=== PATIENT | male | born 1965 | race African-American/Black ===

== ENCOUNTER 2018-10-02 13:15 | Emergency (ER) | payer OTHER, BC ==
[2018-10-02 13:24] VITALS: TEMP 98.3; BMI 33.7
--- NOTE | 2018-10-02 14:32 | PDOC ---
History of Present Illness - General Chief Complaint: Pain, Acute Stated Complaint: RT SIDE ABD PAIN Time Seen by Provider: 10/02/18 14:05 - History of Present Illness Initial Comments: Mr. Gaona is a 53 y/o male with PMH of HTN (off his meds) presenting with flank and abdominal pain. Reports that the flank pain started 1 week ago. Yesterday, reports that the pain has migrated to his RLQ. Pain does not radiate anywhere else. Reports that the pain is intermittent. Denies fever, chills, nausea, vomiting. Denies chest pain or shortness of breath. Denies changes in stool or urinary symptoms. PMH: HTN SurgHx: bl patellar knee tendon repair Meds: prescribed HTN meds but non-adherent FamHx: DM in both parents Past History - Past Medical History Allergies/Adverse Reactions: Allergies Allergy/AdvReac Type Severity Reaction Status Date / Time No Known Allergies Allergy Verified 10/02/18 13:24 Home Medications: Ambulatory Orders Verapamil HCl [Verapamil ER] 240 mg PO DAILY 10/02/18 metFORMIN HCL [Metformin HCl] 500 mg PO DAILY 10/02/18 COPD: No HTN: Yes - Immunization History Immunization Up to Date: Yes - Suicide/Smoking/Psychosocial Hx Smoking History: Never smoked Hx Alcohol Use: No Drug/Substance Use Hx: Yes ([facility]) Review of Systems - Review of Systems Comments:: ROS GENERAL/CONSTITUTIONAL: No fever or chills. No weakness._ HEAD, EYES, EARS, NOSE AND THROAT: No change in vision. No ear pain or discharge. No sore throat._ CARDIOVASCULAR: No chest pain or shortness of breath_ RESPIRATORY: Denies cough, hemoptysis_ GASTROINTESTINAL: No nausea, vomiting, diarrhea or constipation. Report RLQ abdominal pain. GENITOURINARY: No dysuria, frequency, or change in urination._ MUSCULOSKELETAL: No joint or muscle swelling or pain. No neck pain. Reports right back pain. SKIN: No rash_ NEUROLOGIC: No headache, vertigo, loss of consciousness, or change in strength/ sensation._ ENDOCRINE: No increased thirst. No abnormal weight change_ HEMATOLOGIC/LYMPHATIC: No anemia, easy bleeding, or history of blood clots._ ALLERGIC/IMMUNOLOGIC: No hives or skin allergy._ *Physical Exam - Vital Signs Last Vital Signs Temp Pulse Resp BP Pulse Ox 98.3 F 85 18 237/114 H 100 10/02/18 13:21 10/02/18 13:21 10/02/18 13:21 10/02/18 13:21 10/02/18 13:21 - Physical Exam Comments: GENERAL: Awake, alert, and oriented to person/place/time, in no acute distress_ HEAD: No signs of trauma, normocephalic, atraumatic _ EYES: PERRLA, EOMI, sclera anicteric, conjunctiva clear_ ENT: Hearing grossly normal, nares patent, oropharynx clear without exudates. No uvular deviation. Moist mucosa_ NECK: Normal ROM, supple, no lymphadenopathy, JVD, or masses_ LUNGS: No distress, speaks in full sentences, clear to auscultation bilaterally _ HEART: Regular rate and rhythm, normal S1 and S2, no murmurs appreciated, peripheral pulses normal and equal bilaterally._ ABDOMEN: Soft, TTP RLQ, normoactive bowel sounds. No guarding, no rebound. No masses. Negative Rovsing's. BACK: No CVA tenderness bilaterally. EXTREMITIES: Normal inspection, Normal range of motion, no edema. No clubbing or cyanosis_ NEUROLOGICAL: Cranial nerves II through XII grossly intact. Normal speech, normal gait, no focal sensorimotor deficits _ SKIN: Warm, Dry, normal turgor, no rashes or lesions noted_ ED Treatment Course - LABORATORY CBC & Chemistry Diagram: 10/02/18 14:54 10/02/18 14:54 Medical Decision Making - Medical Decision Making 10/02/18 1430 53M with PMH of HTN, non-adherent to medications, presenting with right flank pain for the past week and RLQ pain that started yesterday. Obtain CBC, CMP, CXR, EKG, trop, UA, lipase, Mg, coags. 10/02/18 15:00 EKG shows NSR 75 bpm, possible left atrial enlargement, no ST elevation/ depression, QTc 437 ms. 10/02/18 21:10 Patient BP moderately decreased at rest and with home dose of verapamil during ER course. Labs and UA reviewed and wnl. CT of the abd/pelv shows no acute intra-abdominal process. Plan to d/c home with Tylenol for muscle strain pain control and instructions to follow up with PCP for blood pressure control. Patient has verapamil at home to take as prescribed. Strict return precautions given. *DC/Admit/Observation/Transfer Diagnosis at time of Disposition: Essential hypertension, Muscle strain - Discharge Dispostion Disposition: HOME Condition at time of disposition: Stable Decision to Admit order: No - Referrals Referrals: Fern Gu MD [Primary Care Provider] - - Patient Instructions Additional Instructions: Please continue taking your verapamil (blood pressure medication) as prescribed. Please make an appointment with your primary care doctor to follow up on blood pressure control. Please take Tylenol as needed for muscle strain until you can see your primary care doctor (follow instructions on the package). If you experience any new, worsening, or concerning symptoms, including headache , blurry vision, chest pain, shortness of breath, blood in the urine, or any other concerns, please return to the emergency room. - Post Discharge Activity
[2018-10-02] MEDS ORDERED: ACETAMINOPHEN 1000 MG/100 ML VIAL (NON FORMULARY) IVPB ONE (15:07)
[2018-10-02 15:17] LABS: EOS % 2.9 % (0-4.5); HEMATOCRIT 48.1 % (35.4-49); HEMOGLOBIN 16.4 GM/dL (11.7-16.9); LYMPH % 25.8 % (8-40); MCHC 34.2 g/dl (32.0-35.9); MEAN CELL VOLUME 87.8 fl (80-96); MEAN PLT VOLUME 9.7 fl (7.5-11.1); MONO % 8.9 % (3.8-10.2); NEUT % 61.4 % (42.8-82.8); PLATELET COUNT 244 K/MM3 (134-434); RBC 5.47 M/mm3 (4.00-5.60); RDW 12.6 % (11.9-15.9); WHITE BLOOD COUNT 5.9 K/mm3 (4.0-10.0)
[2018-10-02 15:24] LABS: INR 0.97 (0.83-1.09); PROTHROMBIN TIME (PATIENT) 11.4 SEC (9.7-13.0)
[2018-10-02] MEDS ORDERED: ACETAMINOPHEN INJECTION 100 ML IVPB ONE (15:26)
[2018-10-02 15:58] LABS: BILIRUBIN,TOTAL 1.2 mg/dL (0.2-1); BLOOD UREA NITROGEN 13.3 mg/dL (7-18); CALCIUM 9.2 mg/dL (8.5-10.1); CREATININE 1.3 mg/dL (0.55-1.3); MAGNESIUM 2.1 mg/dL (1.8-2.4); POTASSIUM 4.9 mmol/L (3.5-5.1); TOT PROT 7.2 g/dl (6.4-8.2)
--- NOTE | 2018-10-02 15:59 | PDOC ---
Documentation entered by Bar Malloy SCRIBE, acting as scribe for Alfonzo Farah MD. Alfonzo Farah MD: This documentation has been prepared by the Gama carranza Xhesika, SCRIBE, under my direction and personally reviewed by me in its entirety. I confirm that the documentation accurately reflects all work, treatment, procedures, and medical decision making performed by me. Attending Attestation - Resident Resident Name: Fausto Mcdonald - ED Attending Attestation I have performed the following: I have examined & evaluated the patient, The case was reviewed & discussed with the resident, I agree w/resident's findings & plan - HPI HPI: 10/02/18 15:36 The patient is a 53 year old male with a significant PMH of HTN (noncompliant with medication the past week) who presents to the emergency department with 1 week of R sided flank pain that has now moved to the R mid/lower abd. Pt was in the gym the day prior to onset, it was initially positional in nature so he attributed it to muscular pain. Pain is constant, and now relocalized to the R mid/lower abd so he presents for eval. Patient denies history of kidney stones, dysuria, frequency, urgency and hematuria. No cardiopulmonary complaints, no GI complaints. The patient denies chest pain, shortness of breath, headache and dizziness. Denies fever, chills, cough, nausea, vomiting, diarrhea and constipation. Allergies: NKDA Past surgical history: b/l patellar knee tendon repair PCP: Riccardo Santos Abdul - Physicial Exam PE: 10/02/18 15:57 A pressure markedly elevated at triage, improved without medications Well-appearing gentleman lying comfortably in stretcher, no acute distress, smiling and conversant Heart is regular, lungs are clear Abdomen is soft/nondistended. There is discomfort to palpation with some guarding along the right lateral abdomen in the mid quadrant, no CVA tenderness , no palpable hernias, exam is normal. No palpable abdominal also, masses. Normal peripheral pulses No rash - Medical Decision Making 10/02/18 15:58 53-year-old male with labile blood pressures secondary to noncompliance with antihypertensives presents now with 1 week of constant right flank pain that has migrated to the right mid/right lower abdomen, not associated with any cardiopulmonary/GI/ complaints. Exam localizes to the right middle abdomen, question consistent with renal colic, bedside ultrasound shows no evidence of aneurysm, but will need imaging to rule out vascular process versus renal infarct given his elevated blood pressures. Labs, urinalysis Pain control CT of the abdomen and pelvis with and without IV contrast Reassess Heart Score/ECG Review #1 ECG reviewed & interpreted by me at: 14:44 General ECG Interpretation: Sinus Rhythm, Normal Rate (75), Normal Intervals ( qtc 437), No acute ischemic changes (TWI I/AVL, V5V6.) Compared to previous ECG there are: Previous ECG unavail
--- NOTE | 2018-10-02 16:01 | EKG ---
Test Reason : Blood Pressure : / mmHG Vent. Rate : 075 BPM Atrial Rate : 075 BPM P-R Int : 182 ms QRS Dur : 106 ms QT Int : 392 ms P-R-T Axes : 048 030 139 degrees QTc Int : 437 ms NORMAL SINUS RHYTHM POSSIBLE LEFT ATRIAL ENLARGEMENT POSSIBLE INFERIOR INFARCT , AGE UNDETERMINED T WAVE ABNORMALITY, CONSIDER LATERAL ISCHEMIA ABNORMAL ECG NO PREVIOUS ECGS AVAILABLE Confirmed by MD LEEANN, KIARA ([id number]) on 10/02/2018 4:00:38 PM Referred By: Confirmed By:KIARA BRADSHAW MD
[2018-10-02 19:34] VITALS: PULSE 77
[2018-10-02] MEDS ORDERED: VERAPAMIL HCL 240 MG E.R. TABLET PO ONE (19:58)
[2018-10-02 20:14] LABS: EPI CELLS 0.2 /HPF (0-5/HPF); HYALINE CASTS 0 /lpf (0-8); URINE APPEARANCE CLEAR; URINE BACTERIA 0.8 /hpf (NEGATIVE); URINE BILIRUBIN NEGATIVE (NEGATIVE); URINE COLOR YELLOW; URINE GLUCOSE (UA) NEGATIVE (NEGATIVE); URINE KETONE NEGATIVE (NEGATIVE); URINE LEUK ESTERASE NEGATIVE (NEGATIVE); URINE NITRITE NEGATIVE (NEGATIVE); URINE PROTEIN 1+ (NEGATIVE); URINE RBC 0 /hpf (0-4); URINE UROBILINOGEN 0.2 mg/dL (0.2-1.0); URINE WBC 1 /hpf (0-5)
[2018-10-03 02:46] VITALS: BP 170/105
== END 2018-10-02 21:29 | disposition home or self-care (01) ==
LOC: JER 13:15
PROC: 3E033NZ Introduction of Analgesics, Hypnotics, Sedatives into Peripheral Vein, Percutaneous Approach (ICD-10-PCS; principal; 2018-10-02)
DX: S39.011A Strain of muscle, fascia and tendon of abdomen, initial encounter (principal); X58.XXXA Exposure to other specified factors, initial encounter; Y93.89 Activity, other specified; Y92.89 Other specified places as the place of occurrence of the external cause; Y99.8 Other external cause status; I10 Essential (primary) hypertension; Z91.14 Patient's other noncompliance with medication regimen
CPT/HCPCS: 36415; 71045-TC-FY; 74178-TC; 80053; 81003; 82150; 82550; 82553; 83690; 83735; 84484; 85025; 85610; 86850; 86900; 86901; 93005; 93010; 99283-25; J0131

== ENCOUNTER 2021-05-28 11:40 | Inpatient (IN) | payer BC, OTHER ==
[2021-05-28 13:20] LABS: BASO % 1.3 % (0-2.0); EOS % 2.1 % (0-4.5); HEMATOCRIT 47.3 % (35.4-49); HEMOGLOBIN 15.7 GM/dL (11.7-16.9); MCH 29.9 pg (25.7-33.7); MCHC 33.2 g/dl (32.0-35.9); MEAN CELL VOLUME 90.2 fl (80-96); MEAN PLT VOLUME 9.8 fl (7.5-11.1); MONO % 7.3 % (3.8-10.2); NEUT % 74.3 % (42.8-82.8); PLATELET COUNT 247 10^3/uL (134-434); RBC 5.25 M/mm3 (4.00-5.60); WHITE BLOOD COUNT 5.2 K/mm3 (4.0-10.0)
[2021-05-28 13:34] LABS: CALCIUM 8.8 mg/dL (8.5-10.1)
[2021-05-28 13:35] LABS: ALBUMIN 3.8 g/dl (3.4-5.0); BLOOD UREA NITROGEN 15.1 mg/dL (7-18)
[2021-05-28 13:38] LABS: CREATININE 1.4 mg/dL (0.55-1.3)
[2021-05-28 13:39] LABS: TOT PROT 7.1 g/dl (6.4-8.2)
[2021-05-28 13:42] LABS: N-TERMINAL BNP 369.2 pg/ml (5-125)
[2021-05-28] MEDS ORDERED: VALSARTAN 160 MG TABLET PO SCH (18:45)
[2021-05-29] MEDS ORDERED: VALSARTAN 160 MG TABLET PO ONE ×2 (05:33→09:30)
[2021-05-29 07:15] LABS: CALCIUM 8.2 mg/dL (8.5-10.1)
[2021-05-29 07:16] LABS: BLOOD UREA NITROGEN 17.9 mg/dL (7-18)
[2021-05-29 07:19] LABS: CREATININE 1.5 mg/dL (0.55-1.3)
[2021-05-29] MEDS ORDERED: VALSARTAN 160 MG TABLET PO SCH (08:00)
[2021-05-29] MEDS: ENOXAPARIN NA (PORCINE) 40 MG/0.4 ML DISP.SYRIN SQ SCH (09:30)
[2021-05-29] MEDS ORDERED: CHLORTHALIDONE 25 MG TABLET PO SCH (10:00)
[2021-05-29] MEDS ORDERED: ONDANSETRON 4 MG/2 ML VIAL IVPUSH PRN (16:06)
[2021-05-29] MEDS ORDERED: amLODIPine BESYLATE 5 MG TABLET (FP) PO ONE (18:23)
[2021-05-29] MEDS: ACETAMINOPHEN 325 MG TABLET (FP) PO PRN (18:28)
[2021-05-29] MEDS ORDERED: LABETALOL HCL 5 MG/1 ML (100MG/20 ML VIAL) IVPUSH ONE (21:07)
[2021-05-30] MEDS: CHLORTHALIDONE 25 MG TABLET PO SCH (06:07)
[2021-05-30] MEDS: ENOXAPARIN NA (PORCINE) 40 MG/0.4 ML DISP.SYRIN SQ SCH (09:30)
[2021-05-30] MEDS: VALSARTAN 160 MG TABLET PO SCH (09:30)
[2021-05-30] MEDS ORDERED: amLODIPine BESYLATE 5 MG TABLET (FP) PO ONE (15:02)
[2021-05-30] MEDS: hydrALAZINE HCL 50 MG TABLET (FP) PO SCH ×2 (18:14→21:46)
[2021-05-30] MEDS: amLODIPine BESYLATE 5 MG TABLET (FP) PO SCH (21:46)
[2021-05-30] MEDS ORDERED: amLODIPine BESYLATE 5 MG TABLET (FP) PO SCH (22:00)
[2021-05-31] MEDS: CHLORTHALIDONE 25 MG TABLET PO SCH (06:32)
[2021-05-31] MEDS: hydrALAZINE HCL 50 MG TABLET (FP) PO SCH ×3 (06:32→22:07)
[2021-05-31 08:21] LABS: ALBUMIN 3.4 g/dl (3.4-5.0); BLOOD UREA NITROGEN 15.2 mg/dL (7-18); CALCIUM 8.7 mg/dL (8.5-10.1); MAGNESIUM 2.1 mg/dL (1.8-2.4)
[2021-05-31 08:23] LABS: BILIRUBIN,DIRECT 0.3 mg/dL (0.0-0.2)
[2021-05-31 08:24] LABS: CREATININE 1.4 mg/dL (0.55-1.3); PHOSPHOROUS 3.4 mg/dL (2.5-4.9)
[2021-05-31 08:25] LABS: BILIRUBIN,TOTAL 1.2 mg/dL (0.2-1); TOT PROT 6.5 g/dl (6.4-8.2)
[2021-05-31] MEDS: VALSARTAN 160 MG TABLET PO SCH (10:10)
[2021-05-31] MEDS: ENOXAPARIN NA (PORCINE) 40 MG/0.4 ML DISP.SYRIN SQ SCH (10:10)
[2021-05-31] MEDS ORDERED: CHLORTHALIDONE 25 MG TABLET PO SCH (11:58)
[2021-05-31] MEDS ORDERED: hydrALAZINE HCL 50 MG TABLET (FP) PO ONE (12:15)
[2021-05-31] MEDS ORDERED: CHLORTHALIDONE 25 MG TABLET PO ONE (13:00)
[2021-05-31 13:32] VITALS: BMI 34.0
[2021-05-31] MEDS ORDERED: ACETAMINOPHEN 325 MG TABLET (FP) PO ONE (16:21)
[2021-05-31] MEDS: amLODIPine BESYLATE 5 MG TABLET (FP) PO SCH (22:07)
[2021-05-31 23:53] LABS: URINE APPEARANCE CLEAR; URINE BILIRUBIN NEGATIVE (NEGATIVE); URINE COLOR YELLOW; URINE GLUCOSE (UA) NEGATIVE (NEGATIVE); URINE KETONE NEGATIVE (NEGATIVE); URINE LEUK ESTERASE NEGATIVE (NEGATIVE); URINE NITRITE NEGATIVE (NEGATIVE); URINE PROTEIN NEGATIVE (NEGATIVE)
[2021-06-01] MEDS: hydrALAZINE HCL 50 MG TABLET (FP) PO SCH (05:23)
[2021-06-01] MEDS: CHLORTHALIDONE 25 MG TABLET PO SCH ×2 (05:23→06:03)
[2021-06-01 07:09] LABS: HEMATOCRIT 49.8 % (35.4-49); HEMOGLOBIN 16.7 GM/dL (11.7-16.9); MCH 30.3 pg (25.7-33.7); MCHC 33.6 g/dl (32.0-35.9); MEAN CELL VOLUME 90.3 fl (80-96); MEAN PLT VOLUME 9.4 fl (7.5-11.1); PLATELET COUNT 269 10^3/uL (134-434); RBC 5.51 M/mm3 (4.00-5.60); RDW 13.4 % (11.9-15.9); WHITE BLOOD COUNT 4.8 K/mm3 (4.0-10.0)
[2021-06-01 07:33] LABS: ALBUMIN 3.6 g/dl (3.4-5.0); BLOOD UREA NITROGEN 18.4 mg/dL (7-18); CALCIUM 9.1 mg/dL (8.5-10.1)
[2021-06-01 07:36] LABS: CREATININE 1.5 mg/dL (0.55-1.3)
[2021-06-01 07:37] LABS: BILIRUBIN,TOTAL 1.3 mg/dL (0.2-1); TOT PROT 6.8 g/dl (6.4-8.2)
[2021-06-01 08:24] VITALS: BP 139/82; PULSE 71; TEMP 98.7
[2021-06-01] MEDS: VALSARTAN 160 MG TABLET PO SCH (10:08)
[2021-06-01] MEDS: ENOXAPARIN NA (PORCINE) 40 MG/0.4 ML DISP.SYRIN SQ SCH (10:08)
[2021-06-01] MEDS: ACETAMINOPHEN 325 MG TABLET (FP) PO PRN (10:17)
[2021-06-01] MEDS ORDERED: ASPIRIN COATED 81 MG TABLET.EC PO SCH (11:30)
[2021-06-01] MEDS ORDERED: hydrALAZINE HCL 50 MG TABLET (FP) PO SCH (22:00)
[2021-06-02] MEDS ORDERED: CHLORTHALIDONE 25 MG TABLET PO SCH (07:00)
== END 2021-06-01 18:29 | disposition home or self-care (01) | DRG 305 ==
LOC: JER 11:40 → OBSVTOIN 12:56 → UNDOADMOB 12:56 → INTOOBSV 12:56 → JERBED 12:56 → OBSVTOIN 16:06 → J4W 18:23
PROVIDERS: ADMIT Internal Medicine; ATTEND Internal Medicine
DX: I16.0 Hypertensive urgency (principal); E11.9 Type 2 diabetes mellitus without complications; N28.1 Cyst of kidney, acquired; N18.2 Chronic kidney disease, stage 2 (mild); R74.01 Elevation of levels of liver transaminase levels; I13.10 Hypertensive heart and chronic kidney disease without heart failure, with stage 1 through stage 4 chronic kidney disease, or unspecified chronic kidney disease; R07.89 Other chest pain
CPT/HCPCS: 36415; 71046-TC-FY; 76705-TC; 76775-TC; 80048; 80053; 80061; 80076; 81003; 82570; 83036; 83735; 83835; 83880; 84100; 84156; 84443; 84484; 85025; 85027; 87086; 93005; 93010; 93306-TC; 93975; 99285-25; C9803-CS; U0003; U0005

== ENCOUNTER 2023-06-13 12:10 | Emergency (ER) | payer BC ==
[2023-06-13 12:21] VITALS: PULSE 85; RESP 18; TEMP 98.7; BMI 33.7
[2023-06-13 13:39] LABS: BASO % 1.3 % (0-2.0); EOS % 2.1 % (0-4.5); HEMATOCRIT 47.4 % (35.4-49); HEMOGLOBIN 15.8 GM/dL (11.7-16.9); LYMPH % 23.9 % (8-40); MCH 30.3 pg (25.7-33.7); MCHC 33.4 g/dl (32.0-35.9); MEAN CELL VOLUME 90.8 fl (80-96); MEAN PLT VOLUME 9.2 fl (7.5-11.1); MONO % 8.8 % (3.8-10.2); NEUT % 63.9 % (42.8-82.8); PLATELET COUNT 258 10^3/uL (134-434); RBC 5.22 M/mm3 (4.00-5.60); RDW 12.3 % (11.9-15.9); WHITE BLOOD COUNT 6.4 K/mm3 (4.0-10.0)
[2023-06-13 13:46] LABS: PROTHROMBIN TIME (PATIENT) 11.6 SEC (9.7-13.0)
[2023-06-13 13:49] LABS: ACTIVATED PTT 32.5 SECONDS (25.2-36.5)
[2023-06-13 14:05] LABS: BLOOD UREA NITROGEN 17.5 mg/dL (7-18)
[2023-06-13 14:08] LABS: CREATININE 1.6 mg/dL (0.55-1.3)
[2023-06-13 14:10] LABS: BILIRUBIN,TOTAL 1.3 mg/dL (0.2-1); TOT PROT 7.1 g/dl (6.4-8.2)
[2023-06-13 14:21] LABS: CALCIUM 9.1 mg/dL (8.5-10.1)
[2023-06-13] MEDS ORDERED: amLODIPine BESYLATE 10 MG TABLET (FP) ONE (15:07)
[2023-06-13] MEDS: amLODIPine BESYLATE 10 MG TABLET (FP) PO ONE (15:13)
[2023-06-13 16:10] VITALS: BP 180/98
== END 2023-06-13 16:22 | disposition home or self-care (01) ==
LOC: JER 12:10
DX: M54.2 Cervicalgia (principal); I10 Essential (primary) hypertension
CPT/HCPCS: 36415; 71046-TC-FY; 80053; 84484; 85025; 85610; 85730; 93005; 93010; 99285-25